=== PATIENT | male | born 1975 | race Caucasian/White ===

== ENCOUNTER 2017-07-23 20:43 | Emergency (ER) | payer BC ==
[~2017-07-23] VITALS: Ht 162.6 cm; Wt 75.0 kg
[2017-07-23 20:49] VITALS: BP 149/85; TEMP 98.2
[2017-07-23 21:31] VITALS: PULSE 79
== END 2017-07-23 21:32 | disposition home or self-care (01) ==
LOC: COL.ER 20:43
DX: T87.89 Other complications of amputation stump (principal); W31.2XXA Contact with powered woodworking and forming machines, initial encounter; Y92.009 Unspecified place in unspecified non-institutional (private) residence as the place of occurrence of the external cause